=== PATIENT | female | born 1955 | race Caucasian/White ===

== ENCOUNTER 2020-08-12 14:00 | Emergency (ER) | payer OTHER ==
[~2020-08-12 14:00] MED LIST: ACETAMINOPHEN325 MG PO; BUTORPHANO10 MG/1 ML; CEFAZOLIN2 GM/50 ML IV; CEFUROXIME500 MG PO; CIPRO500 MG PO; CLEOCIN HCL300 MG PO; COLACE 100MG C100 MG PO; COMBIVENT0.074 GM/I INH; COZAAR50 MG PO; DEPAKOTE 250 M250 MG PO; DEXILANT60 MG PO; DILAUDID2 MG PO; DULCOLAX10 MG PR; ELIQUIS5 MG PO; FLOVENT 220.1 GM/INH INH; GABAPENTIN300 MG PO; HYDROCODON-ACE1 EAC4 PO; HYDROCODONE-CH473 ML PO; HYDROCODONE-CHLO5 ML PO; IPRAT-ALBUT 0.5-3 ML INH; IPRAT-ALBUT 0.5-3 ML NEB; KEFLEX CAP 500500 MG PO; LEVOFLOXACIN750 MG PO; LEVOTHYROXINE50 MCG PO; LOPRESSOR50 MG PO; LORTAB 5-325 M1 EACH PO; MACROBID 100 M100 MG PO; NALOXONE H0.4 MG/11 IVP; NEURONTIN 300300 MG PO; NEURONTIN300 MG PO; NORCO 5-325 TA1 EACH PO; OMNICEF 300 MG300 MG PO; PAXIL40 MG PO; PERCOCET 5-3251 EACH PO; PERCOCET 5/325 T1 EA PO; PREDNISONE 20 M20 MG GT; PREDNISONE20 MG PO; PROAIR DIGIHAL90 MCG INH; PROVENTIL HFA6.7 GM INH; PYRIDIUM200 MG PO; SINGULAIR10 MG PO; SODIUM CHLORIDE1 G1 PO; SYMBICORT 80-10.2 GM INH; SYMBICORT 80-41 INHA INH; SYNTHROID25 MCG PO; TAMIFLU 75 MG C75 MG PO; THERAGRAN M TAB1 EA PO; TRILEPTAL300 MG PO; TROKENDI XR50 MG PO; Tussinex PO; VENTOLIN HFA 66.7 GM INH; VIBRAMYCIN100 MG PO; VISTARIL25 MG PO; ZANAFLEX4 M1 PO; ZANAFLEX4 MG PO; ZITHROMAX250 MG PO; ZOFRAN 4 MG TAB4 MG PO; ZOFRAN4 MG PO; ZOFRAN4 MG SL; ZYRTEC10 MG PO; oxygen
[2020-08-12 15:52] LABS: RED BLOOD COUNT 4.14 M/UL (4.00-5.10); WHITE BLOOD COUNT 8.1 K/UL (4.5-11.0)
[2020-08-12 16:35] LABS: BUN/CREATININE RATIO 14 (0-10)
[2020-08-12 16:57] LABS: CAMPYLOBACTER Not Detected (Negative); CLOSTRIDIUM DIFFICILE TOX A/B Not Detected (Negative); PLESIOMONAS SHIGELLOIDES Not Detected (Negative); SALMONELLA Not Detected (Negative); VIBRIO Not Detected (Negative)
[2020-08-12 16:58] LABS: ADENOVIRUS F 40/41 Not Detected (Negative); ASTROVIRUS Not Detected (Negative); CRYPTOSPORIDIUM Not Detected (Negative); E.COLI 0157 Not Detected (Negative); ENTAMOEBA HISTOLYTICA Not Detected (Negative); ENTEROAGGREGATIVE E.COLI (EAEC Not Detected (Negative); ENTEROPATHOGENIC E.COLI (EPEC) Not Detected (Negative); ENTEROTOXIGENIC E.COLI (ETEC) Not Detected (Negative); GIARDIA LAMBLIA Not Detected (Negative); NOROVIRUS GI/GII Not Detected (Negative); ROTOVIRUS A Not Detected (Negative); SAPOVIRUS Not Detected (Negative); SHIG/ENTEROINVAS.ECOLI (EIEC) Not Detected (Negative); SHIGA-LIK TOX.PRO.E.COLI (STEC Not Detected (Negative); VIBRIO CHOLERAE Not Detected (Negative); YERSINIA ENTEROCOLITICA Not Detected (Negative)
[2020-08-12] MEDS ORDERED: ZOFRAN4 MG PO (22:26)
[2020-08-12] MEDS ORDERED: TESSALON PERLE100 MG PO (22:26)
[2020-08-12] MEDS ORDERED: FLAGYL500 MG PO (22:26)
== END 2020-08-12 22:45 | disposition home or self-care (01) ==
LOC: ER1 14:00
PROVIDERS: Physician Assistant Medical
DX: R10.84 Generalized abdominal pain (principal); R05 Cough; K56.7 Ileus, unspecified; K52.9 Noninfective gastroenteritis and colitis, unspecified; R06.02 Shortness of breath; I10 Essential (primary) hypertension; I48.91 Unspecified atrial fibrillation; J44.9 Chronic obstructive pulmonary disease, unspecified; Z99.81 Dependence on supplemental oxygen; Z88.6 Allergy status to analgesic agent; Z88.5 Allergy status to narcotic agent; Z88.8 Allergy status to other drugs, medicaments and biological substances; Z90.710 Acquired absence of both cervix and uterus; Z90.49 Acquired absence of other specified parts of digestive tract; Z20.822 Contact with and (suspected) exposure to COVID-19
CPT/HCPCS: 71045; 80053; 81001; 83605; 84484; 85025; 87040; 87507; 96374; 99284; J2405; J7030; Q9967; U0002

== ENCOUNTER 2020-08-30 14:05 | Emergency (ER) | payer OTHER ==
[~2020-08-30 14:05] MED LIST changes: +FLAGYL500 MG PO; +TESSALON PERLE100 MG PO
== END 2020-08-30 20:20 | disposition home or self-care (01) ==
LOC: ER1 14:05
DX: R51.9 Headache, unspecified (principal); R11.10 Vomiting, unspecified; Z88.5 Allergy status to narcotic agent; Z88.6 Allergy status to analgesic agent; Z88.8 Allergy status to other drugs, medicaments and biological substances; Z86.69 Personal history of other diseases of the nervous system and sense organs
CPT/HCPCS: 96372; 99283; J1170; J2405

== ENCOUNTER 2020-10-21 15:21 | Emergency (ER) | payer OTHER | END 2020-10-21 17:28 | disposition home or self-care (01) | LOC: ER1 15:21 | DX: G43.909 Migraine, unspecified, not intractable, without status migrainosus (principal); J44.9 Chronic obstructive pulmonary disease, unspecified; I48.91 Unspecified atrial fibrillation; Z88.5 Allergy status to narcotic agent | CPT/HCPCS: 96372; 99283 ==

== ENCOUNTER 2020-11-20 18:30 | Emergency (ER) | payer OTHER ==
[2020-11-20 21:53] LABS: HEMOGLOBIN 11.5 gm/dl (12.3-15.3); RED BLOOD COUNT 4.01 M/UL (4.00-5.10); WHITE BLOOD COUNT 8.6 K/UL (4.5-11.0)
[2020-11-20 22:11] LABS: BUN/CREATININE RATIO 31 (0-10)
[2020-11-21] MEDS ORDERED: OMNICEF 300 MG300 MG PO (00:22)
== END 2020-11-21 01:16 | disposition home or self-care (01) ==
LOC: ER1 18:30
PROVIDERS: Physician Assistant
DX: G43.909 Migraine, unspecified, not intractable, without status migrainosus (principal); N39.0 Urinary tract infection, site not specified; I10 Essential (primary) hypertension; I48.91 Unspecified atrial fibrillation; Z90.710 Acquired absence of both cervix and uterus; Z88.6 Allergy status to analgesic agent; Z88.5 Allergy status to narcotic agent; Z88.8 Allergy status to other drugs, medicaments and biological substances; Z79.01 Long term (current) use of anticoagulants
CPT/HCPCS: 70450; 80053; 81001; 85025; 87077; 87086; 87186; 96374; 96375; 99284; J0696; J1200; J3360

== ENCOUNTER 2020-12-13 15:29 | Emergency (ER) | payer OTHER ==
[2020-12-13 16:38] LABS: HEMOGLOBIN 12.2 gm/dl (12.3-15.3); RED BLOOD COUNT 4.22 M/UL (4.00-5.10); WHITE BLOOD COUNT 6.7 K/UL (4.5-11.0)
[2020-12-13 17:01] LABS: BUN/CREATININE RATIO 20 (0-10)
== END 2020-12-13 19:05 | disposition home or self-care (01) ==
LOC: ER1 15:29
PROVIDERS: Emergency Medicine
DX: R30.0 Dysuria (principal); I48.91 Unspecified atrial fibrillation
CPT/HCPCS: 80053; 81001; 83605; 83735; 84100; 85025; 85610; 87040; 87086; 96374; 96375; 99284; J1170; J2405; J7030

== ENCOUNTER 2021-01-04 07:44 | Emergency (ER) | payer OTHER ==
[2021-01-04 11:46] LABS: BUN/CREATININE RATIO 18 (0-10)
[2021-01-04 13:22] LABS: HEMOGLOBIN 10.8 gm/dl (12.3-15.3); RED BLOOD COUNT 3.9 M/UL (4.00-5.10); WHITE BLOOD COUNT 3.9 K/UL (4.5-11.0)
[2021-01-04] MEDS ORDERED: LASIX20 MG PO (13:39)
[2021-01-04] MEDS ORDERED: K-DUR TAB 20 M20 MEQ PO (13:39)
== END 2021-01-04 14:12 | disposition home or self-care (01) ==
LOC: ER1 07:44
PROVIDERS: Physician Assistant Medical
DX: R06.02 Shortness of breath (principal); R05 Cough; I48.91 Unspecified atrial fibrillation; I25.2 Old myocardial infarction; I10 Essential (primary) hypertension; Z90.49 Acquired absence of other specified parts of digestive tract; Z90.89 Acquired absence of other organs; Z79.01 Long term (current) use of anticoagulants
CPT/HCPCS: 36415; 71045; 80053; 82550; 82553; 83735; 83874; 83880; 84439; 84443; 84484; 85025; 93005; 99285

== ENCOUNTER 2021-01-07 17:31 | Emergency (ER) | payer OTHER ==
[~2021-01-07 17:31] MED LIST changes: +K-DUR TAB 20 M20 MEQ PO; +LASIX20 MG PO
[2021-01-07 19:17] LABS: HEMOGLOBIN 10.7 gm/dl (12.3-15.3); RED BLOOD COUNT 3.77 M/UL (4.00-5.10); WHITE BLOOD COUNT 7.3 K/UL (4.5-11.0)
[2021-01-07 19:35] LABS: BUN/CREATININE RATIO 26 (0-10)
[2021-01-07] MEDS ORDERED: CEFUROXIME500 MG PO (21:05)
[2021-01-07] MEDS ORDERED: LASIX20 MG PO (21:05)
== END 2021-01-07 21:20 | disposition home or self-care (01) ==
LOC: ER1 17:31
PROVIDERS: Preventive Medicine Occupational Medicine
DX: J37.0 Chronic laryngitis (principal); N39.0 Urinary tract infection, site not specified; R60.0 Localized edema; F17.210 Nicotine dependence, cigarettes, uncomplicated; Z88.5 Allergy status to narcotic agent
CPT/HCPCS: 71045; 80053; 81001; 82550; 82553; 83874; 83880; 84484; 85025; 85652; 86140; 87077; 87086; 87186; 96374; 99285; J1940; J7030

== ENCOUNTER 2021-02-10 13:42 | Emergency (ER) | payer OTHER ==
[2021-02-10 15:20] LABS: HEMOGLOBIN 12.9 gm/dl (12.3-15.3); RED BLOOD COUNT 4.62 M/UL (4.00-5.10)
[2021-02-10] MEDS ORDERED: ZOFRAN ODT 4 MG4 MG PO (18:53)
[2021-02-10] MEDS ORDERED: CEPHALEXIN500 MG PO (18:53)
== END 2021-02-10 19:36 | disposition home or self-care (01) ==
LOC: ER1 13:42
PROVIDERS: Nurse Practitioner
DX: N39.0 Urinary tract infection, site not specified (principal); N20.0 Calculus of kidney; I48.91 Unspecified atrial fibrillation; J44.9 Chronic obstructive pulmonary disease, unspecified; Z88.5 Allergy status to narcotic agent; Z88.6 Allergy status to analgesic agent; Z88.8 Allergy status to other drugs, medicaments and biological substances; Z95.0 Presence of cardiac pacemaker; Z90.710 Acquired absence of both cervix and uterus
CPT/HCPCS: 80053; 81001; 83605; 83690; 85025; 87077; 87086; 87186; 96374; 96375; 96376; 99284; J0696; J1170; J2405; J7040

== ENCOUNTER 2021-02-13 12:47 | Observation (INO) | payer OTHER ==
[~2021-02-13] VITALS: Ht 167.6 cm; Wt 112.2 kg
[~2021-02-13 12:47] MED LIST changes: +CEPHALEXIN500 MG PO; +ZOFRAN ODT 4 MG4 MG PO
[2021-02-13 14:57] LABS: HEMOGLOBIN 12.4 gm/dl (12.3-15.3); RED BLOOD COUNT 4.43 M/UL (4.00-5.10)
[2021-02-13 15:00] LABS: WHITE BLOOD COUNT 6.9 K/UL (4.5-11.0)
[2021-02-13 15:22] LABS: BUN/CREATININE RATIO 17 (0-10)
[2021-02-13] MEDS ORDERED: GABAPENTIN400 MG PO (21:32)
[2021-02-14 03:44] LABS: HEMOGLOBIN 11.1 gm/dl (12.3-15.3); RED BLOOD COUNT 4.01 M/UL (4.00-5.10); WHITE BLOOD COUNT 6.2 K/UL (4.5-11.0)
[2021-02-14 03:55] LABS: BUN/CREATININE RATIO 19 (0-10)
[2021-02-15 06:49] LABS: HEMOGLOBIN 11.6 gm/dl (12.3-15.3); RED BLOOD COUNT 4.23 M/UL (4.00-5.10); WHITE BLOOD COUNT 4.1 K/UL (4.5-11.0)
[2021-02-15 07:36] LABS: BUN/CREATININE RATIO 14 (0-10)
== END 2021-02-15 16:45 | disposition home or self-care (01) ==
LOC: ER1 12:47 → MED SURG 4 17:01 → CDU 17:01 → MED SURG 4 20:30
PROVIDERS: Family Medicine; Physician Assistant; Physician Assistant Medical; ADMIT Internal Medicine
DX: N30.00 Acute cystitis without hematuria (principal); B96.20 Unspecified Escherichia coli [E. coli] as the cause of diseases classified elsewhere; N20.0 Calculus of kidney; E87.1 Hypo-osmolality and hyponatremia; I48.0 Paroxysmal atrial fibrillation; I10 Essential (primary) hypertension; E03.9 Hypothyroidism, unspecified; K22.70 Barrett's esophagus without dysplasia; G89.29 Other chronic pain; M54.5 Low back pain; E66.9 Obesity, unspecified; Z68.39 Body mass index [BMI] 39.0-39.9, adult; Z20.822 Contact with and (suspected) exposure to COVID-19; Z95.0 Presence of cardiac pacemaker; Z79.01 Long term (current) use of anticoagulants; Z79.51 Long term (current) use of inhaled steroids; Z79.899 Other long term (current) drug therapy; Z88.5 Allergy status to narcotic agent; Z88.6 Allergy status to analgesic agent; Z88.8 Allergy status to other drugs, medicaments and biological substances
CPT/HCPCS: 36415; 71045; 74018; 80048; 80053; 81001; 83605; 83735; 85025; 85027; 85610; 86140; 87040; 87086; 94664; 94760; 96374; 96375; 96376; 99285; G0378; J0696; J1170; J2405; J7030; U0002

== ENCOUNTER 2021-03-08 08:53 | Emergency (ER) | payer OTHER ==
[~2021-03-08 08:53] MED LIST changes: +GABAPENTIN400 MG PO
[2021-03-08] MEDS ORDERED: HYDROCODON-ACE1 EAC4 PO (11:40)
== END 2021-03-08 12:10 | disposition home or self-care (01) ==
LOC: ER1 08:53
DX: S09.90XA Unspecified injury of head, initial encounter (principal); S50.01XA Contusion of right elbow, initial encounter; X58.XXXA Exposure to other specified factors, initial encounter
CPT/HCPCS: 70450; 73060; 73080; 99284

== ENCOUNTER 2021-03-18 03:49 | Emergency (ER) | payer OTHER | END 2021-03-18 10:00 | disposition home or self-care (01) | LOC: ER1 03:49 | DX: G43.909 Migraine, unspecified, not intractable, without status migrainosus (principal); I48.91 Unspecified atrial fibrillation; I11.9 Hypertensive heart disease without heart failure; G40.909 Epilepsy, unspecified, not intractable, without status epilepticus; Z90.710 Acquired absence of both cervix and uterus; Z90.49 Acquired absence of other specified parts of digestive tract; Z88.6 Allergy status to analgesic agent; Z88.8 Allergy status to other drugs, medicaments and biological substances | CPT/HCPCS: 96374; 96375; 99283; J1170; J2765; J7030 ==

== ENCOUNTER → 2021-03-21 | Outpatient (CLI) | payer OTHER ==
[~2021-03-21] MED LIST changes: +NORFLEX 100 MG100 MG PO; +TYLENOL325 MG PO
== END ==
LOC: LBRF 16:42
DX: R32 Unspecified urinary incontinence (principal)
CPT/HCPCS: 87086

== ENCOUNTER 2021-05-04 05:00 | Emergency (ER) | payer OTHER ==
[~2021-05-04 05:00] MED LIST changes: -NORFLEX 100 MG100 MG PO; -TYLENOL325 MG PO
[2021-05-04] MEDS ORDERED: TYLENOL325 MG PO (06:55)
[2021-05-04] MEDS ORDERED: NORFLEX 100 MG100 MG PO (06:55)
== END 2021-05-04 07:03 | disposition home or self-care (01) ==
LOC: ER1 05:00
DX: R07.81 Pleurodynia (principal); J44.9 Chronic obstructive pulmonary disease, unspecified; I10 Essential (primary) hypertension; W18.2XXA Fall in (into) shower or empty bathtub, initial encounter; Y92.009 Unspecified place in unspecified non-institutional (private) residence as the place of occurrence of the external cause
CPT/HCPCS: 71111; 99283

== ENCOUNTER 2021-05-15 13:14 | Emergency (ER) | payer OTHER ==
[~2021-05-15 13:14] MED LIST changes: +NORFLEX 100 MG100 MG PO; +TYLENOL325 MG PO
[2021-05-15 13:39] LABS: HEMOGLOBIN 12.4 gm/dl (12.3-15.3); RED BLOOD COUNT 4.38 M/UL (4.00-5.10); WHITE BLOOD COUNT 6.9 K/UL (4.5-11.0)
[2021-05-15 14:02] LABS: BUN/CREATININE RATIO 30 (0-10)
== END 2021-05-15 16:24 | disposition home or self-care (01) ==
LOC: ER1 13:14
PROVIDERS: Emergency Medicine
DX: G43.909 Migraine, unspecified, not intractable, without status migrainosus (principal)
CPT/HCPCS: 70450; 80053; 82550; 82553; 84484; 85025; 93005; 96374; 96375; 96376; 99284; J1170; J2765; J7030

== ENCOUNTER 2021-06-13 13:23 | Emergency (ER) | payer OTHER | END 2021-06-13 15:30 | disposition home or self-care (01) | LOC: ER1 13:23 | DX: G43.919 Migraine, unspecified, intractable, without status migrainosus (principal) | CPT/HCPCS: 96374; 99283 ==

== ENCOUNTER 2021-07-11 14:12 | Emergency (ER) | payer OTHER ==
[2021-07-11] MEDS ORDERED: ONDANSETRON ODT4 MG SL (19:55)
== END 2021-07-11 20:20 | disposition home or self-care (01) ==
LOC: ER1 14:12
DX: G43.909 Migraine, unspecified, not intractable, without status migrainosus (principal); I10 Essential (primary) hypertension; I48.91 Unspecified atrial fibrillation; Z88.8 Allergy status to other drugs, medicaments and biological substances; Z79.01 Long term (current) use of anticoagulants
CPT/HCPCS: 70450; 96372; 99284; J0595

== ENCOUNTER 2021-08-22 14:08 | Emergency (ER) | payer MEDICARE, OTHER ==
[~2021-08-22 14:08] MED LIST changes: +ONDANSETRON ODT4 MG SL
[2021-08-22 14:42] LABS: HEMOGLOBIN 13.2 gm/dl (12.3-15.3); RED BLOOD COUNT 4.8 M/UL (4.00-5.10); WHITE BLOOD COUNT 5.8 K/UL (4.5-11.0)
[2021-08-22 15:11] LABS: BUN/CREATININE RATIO 16 (0-10)
[2021-08-22] MEDS ORDERED: OMNICEF 300 MG300 MG PO (18:37)
== END 2021-08-22 20:10 | disposition home or self-care (01) ==
LOC: ER1 14:08
PROVIDERS: Physician Assistant
DX: G43.909 Migraine, unspecified, not intractable, without status migrainosus (principal); N39.0 Urinary tract infection, site not specified; Z20.822 Contact with and (suspected) exposure to COVID-19; I10 Essential (primary) hypertension; I48.91 Unspecified atrial fibrillation; Z88.5 Allergy status to narcotic agent; Z88.6 Allergy status to analgesic agent; Z88.4 Allergy status to anesthetic agent; Z88.8 Allergy status to other drugs, medicaments and biological substances; Z79.01 Long term (current) use of anticoagulants
CPT/HCPCS: 70450; 71045; 80053; 81001; 82550; 82553; 83874; 84484; 85025; 87077; 87086; 87186; 93005; 96374; 96375; 96376; 99285; J0696; J2405; U0002

== ENCOUNTER 2021-09-20 19:31 | Emergency (ER) | payer MEDICARE, OTHER | END 2021-09-21 05:47 | disposition home or self-care (01) | LOC: ER1 19:31 | DX: R51.9 Headache, unspecified (principal); I48.91 Unspecified atrial fibrillation; I10 Essential (primary) hypertension; R11.2 Nausea with vomiting, unspecified; Z90.710 Acquired absence of both cervix and uterus; Z88.5 Allergy status to narcotic agent; Z88.8 Allergy status to other drugs, medicaments and biological substances; G40.909 Epilepsy, unspecified, not intractable, without status epilepticus | CPT/HCPCS: 96374; 96375; 99283; J2405 ==

== ENCOUNTER → 2021-10-07 | Outpatient (CLI) | payer MEDICARE, OTHER | LOC: LAB 10:45 | DX: R31.9 Hematuria, unspecified (principal) | CPT/HCPCS: 87086 ==

== ENCOUNTER 2021-12-13 05:26 | Emergency (ER) | payer MEDICARE, OTHER | END 2021-12-13 13:55 | disposition home or self-care (01) | LOC: ER1 05:26 | DX: G43.909 Migraine, unspecified, not intractable, without status migrainosus (principal); I11.9 Hypertensive heart disease without heart failure; I48.91 Unspecified atrial fibrillation; Z88.5 Allergy status to narcotic agent; Z79.01 Long term (current) use of anticoagulants | CPT/HCPCS: 96374; 99283; J1200; J2765 ==

== ENCOUNTER 2022-03-05 19:19 | Emergency (ER) | payer MEDICARE, OTHER | END 2022-03-06 03:14 | disposition home or self-care (01) | LOC: ER1 19:19 | DX: R51.9 Headache, unspecified (principal); F11.20 Opioid dependence, uncomplicated; I48.91 Unspecified atrial fibrillation; Z88.5 Allergy status to narcotic agent; Z88.6 Allergy status to analgesic agent; Z88.8 Allergy status to other drugs, medicaments and biological substances | CPT/HCPCS: 96374; 99283; J0595 ==